=== PATIENT | male | born 1940 | race Caucasian/White ===

== ENCOUNTER 2023-10-01 11:37 | Inpatient (IN) | payer MEDICARE ==
[~2023-10-01] VITALS: Ht 152.4 cm; Wt 63.5 kg
[~2023-10-01 11:37] MED LIST: AMLO5TAB88 PO; ASPI-1406 PO; ATOR-2 PO; BENA40TA91 PO; CLOP-31 MT; COLL30OI TP; HYDR12.54 MT; LEVO112T7 MT; LEVO750T68 PO; METF-416 PO; NITR0.4T49 SL; NPH,100V SQ
[2023-10-01 12:00] VITALS: O2SAT 100
[2023-10-01 12:30] LABS: BASOPHILS % 0.3 % (0.0-2.0); EOSINOPHILS % 0.4 % (0.0-5.0); HEMATOCRIT. 33.6 % (42.0-52.0); HEMOGLOBIN. 11.3 g/dL (14.0-18.0); LYMPHOCYTES % 7.5 % (20.0-50.0); MEAN CORPUSCULAR HEMOGLOBIN 29.5 pg (28.0-32.0); MEAN CORPUSCULAR HGB CONC 33.6 g/dL (31.0-37.0); MEAN CORPUSCULAR VOLUME 87.6 fL (80.0-94.0); MONOCYTES % 6.1 % (2.0-8.0); NEUTROPHILS % 85.7 % (40.0-76.0); PLATELET 370 x1000/uL (130-400); RED BLOOD CELL COUNT 3.83 mill/uL (4.7-6.1); RED CELL DISTRIBUTION WIDTH 13.6 % (11.6-14.6)
[2023-10-01 12:42] LABS: POTASSIUM 5.6 mEq/L (3.5-5.1)
[2023-10-01 13:02] LABS: CREATININE 1.8 mg/dL (0.6-1.3)
[2023-10-01] MEDS: PIPERACILLIN/TAZO 3.375G/50ML 50 ML IV SCH (14:53)
[2023-10-01] MEDS: ACETAMINOPHEN 500MG TABLET PO ONE (15:00)
[2023-10-01] MEDS: ACETAMINOPHEN 500MG TABLET PO SCH (15:02)
[2023-10-01 15:26] LABS: ALANINE AMINOTRANSFERASE 11 IU/L (10-49); ALBUMIN 3.6 g/dL (3.2-4.8); ASPARTATE AMINOTRANSFERASE 27 IU/L (<34); BILIRUBIN DIRECT 0.1 mg/dL (<=3.0); BILIRUBIN TOTAL 0.4 mg/dL (0.1-1.0); PROTEIN TOTAL 6.7 g/dL (6.0-8.3)
[2023-10-01 15:45] LABS: LACTIC ACID 2.1 mmol/L (0.4-2.0)
[2023-10-01] MEDS: CALCIUM CHLORIDE 1GM/10ML SYR IV ONE (16:20)
[2023-10-01] MEDS: SODIUM CHLORIDE 0.9% 1,000 ML IV ONE (16:20)
[2023-10-01] MEDS: DEXTROSE 50% WATER 50ML SYRINGE IV ONE (16:42)
[2023-10-01] MEDS: INSULIN REGULAR (HUMULIN R) 300UNITS/3ML VIAL IV ONE (16:42)
[2023-10-01 16:47] LABS: CHLORIDE 103 mEq/L (98-107); POTASSIUM 4.2 mEq/L (3.5-5.1); SODIUM 133 mEq/L (136-145)
[2023-10-01 16:48] LABS: CARBON DIOXIDE 24 mEq/L (21-32)
[2023-10-01] MEDS: VANCOMYCIN 1G PREMIX 200 ML IV SCH (16:48)
[2023-10-01] MEDS: SODIUM POLYSTYRENE SULFONATE 15 G/60 ML BOT PO ONE (16:48)
[2023-10-01 16:49] LABS: CALCIUM 8.3 mg/dL (8.7-10.4)
[2023-10-01 16:53] LABS: CREATININE 1.6 mg/dL (0.6-1.3); GLUCOSE 147 mg/dL (70-105); UREA NITROGEN BLOOD 31 mg/dL (9-23)
[2023-10-01 16:56] LABS: TROPONIN I HIGH SENSITIVITY 7 ng/L (3.0-53)
[2023-10-01 16:59] LABS: PARTIAL THROMBOPLASTIN TIME 27.6 sec (23.4-31.0); PROTHROMBIN TIME 11.4 sec (9.6-11.0)
[2023-10-01 23:15] VITALS: BP 118/58; PULSE 87; RESP 18; TEMP 97.9
[2023-10-02] MEDS ORDERED: NON FORMULARY PATIENT HOME MED XX SCH ×4 (01:00)
[2023-10-02] MEDS ORDERED: CLONIDINE 0.1MG TABLET PO PRN ×2 (01:00→14:15)
[2023-10-02] MEDS ORDERED: DEXTROSE 50% WATER 50ML SYRINGE IV PRN ×2 (01:00→14:15)
[2023-10-02] MEDS ORDERED: NALOXONE HCL 0.4MG/ML VIAL IV PRN (01:15)
[2023-10-02] MEDS: MORPHINE SULFATE 2 MG/ML CPJ (NOT FOR IM USE) IV PRN (01:20)
[2023-10-02 04:00] VITALS: BP 118/61; PULSE 83; RESP 18; TEMP 100.6; TEMP 97.7
[2023-10-02] MEDS: LEVOTHYROXINE SODIUM 112MCG TABLET PO SCH (07:40)
[2023-10-02] MEDS: INSULIN LISPRO 100 UNITS/ML SUBCUT SCH ×2 (07:59→18:10)
[2023-10-02] MEDS: BLOOD SUGAR DIAGNOSTIC STRIP TEST SCH ×2 (07:59→17:40)
[2023-10-02 08:00] VITALS: BP 128/86; PULSE 78; RESP 18; TEMP 97.6
[2023-10-02] MEDS ORDERED: NPH,100V SUBCUT (09:02)
[2023-10-02] MEDS ORDERED: NITR1PAT65 TD (09:02)
[2023-10-02] MEDS ORDERED: KETO15CR2 TP (09:08)
[2023-10-02] MEDS: ENOXAPARIN 30MG/0.3ML SYR SUBCUT SCH (09:24)
[2023-10-02] MEDS: AMLODIPINE 5MG TABLET PO SCH (09:24)
[2023-10-02] MEDS: HYDROCHLOROTHIAZIDE 12.5MG CAPSULE PO SCH (09:25)
[2023-10-02] MEDS: LISINOPRIL 40MG TABLET PO SCH (09:25)
[2023-10-02] MEDS: CLOPIDOGREL 75MG TABLET PO SCH (09:25)
[2023-10-02] MEDS: ASPIRIN 81MG EC TABLET PO SCH (09:26)
[2023-10-02 12:00] VITALS: BP 118/79; PULSE 86; RESP 22; TEMP 98
[2023-10-02] MEDS ORDERED: DOCUSATE SODIUM 100MG CAPSULE PO PRN (14:15)
[2023-10-02] MEDS ORDERED: ACETAMINOPHEN 325MG TABLET PO PRN (14:15)
[2023-10-02] MEDS ORDERED: IPRATROPIUM/ALBUTEROL 0.5-3(2.5)MG/3ML NEB HHN PRN (14:15)
[2023-10-02 16:00] VITALS: BP 106/53; PULSE 78; RESP 18; TEMP 98.6
[2023-10-02 16:33] LABS: BASOPHILS % 0.2 % (0.0-2.0); EOSINOPHILS % 0.7 % (0.0-5.0); HEMATOCRIT. 29.5 % (42.0-52.0); HEMOGLOBIN. 9.9 g/dL (14.0-18.0); LYMPHOCYTES % 10.2 % (20.0-50.0); MEAN CORPUSCULAR HEMOGLOBIN 29.1 pg (28.0-32.0); MEAN CORPUSCULAR HGB CONC 33.4 g/dL (31.0-37.0); MEAN CORPUSCULAR VOLUME 87.3 fL (80.0-94.0); MEAN PLATELET VOLUME 7.2 fl (7.4-10.4); NEUTROPHILS % 82.9 % (40.0-76.0); PLATELET 291 x1000/uL (130-400); RED BLOOD CELL COUNT 3.38 mill/uL (4.7-6.1); RED CELL DISTRIBUTION WIDTH 13.5 % (11.6-14.6); WHITE BLOOD COUNT 9.3 x1000/uL (4.5-11.0)
[2023-10-02 16:47] LABS: CHLORIDE 101 mEq/L (98-107); POTASSIUM 3.3 mEq/L (3.5-5.1); SODIUM 134 mEq/L (136-145)
[2023-10-02 16:48] LABS: CARBON DIOXIDE 24 mEq/L (21-32)
[2023-10-02] MEDS: CEFTRIAXONE 1GM/50ML 50 ML IV SCH (16:52)
[2023-10-02 16:53] LABS: GLUCOSE 229 mg/dL (70-105); UREA NITROGEN BLOOD 20 mg/dL (9-23)
[2023-10-02 16:55] LABS: ALANINE AMINOTRANSFERASE 7 IU/L (10-49); ALBUMIN 2.9 g/dL (3.2-4.8); ASPARTATE AMINOTRANSFERASE 21 IU/L (<34); BILIRUBIN TOTAL 0.3 mg/dL (0.1-1.0); PROTEIN TOTAL 5.4 g/dL (6.0-8.3)
[2023-10-02 16:56] LABS: BILIRUBIN DIRECT < 0.1 mg/dL (<=3.0)
[2023-10-02] MEDS: SODIUM CHLORIDE 0.45% 1,000 ML IV SCH (16:56)
[2023-10-02] MEDS: METFORMIN HCL 500MG TABLET PO SCH (18:58)
[2023-10-02 20:00] VITALS: BP 95/43; PULSE 80; RESP 18; TEMP 97.2
[2023-10-02] MEDS: ATORVASTATIN CALCIUM 40MG TABLET PO SCH (21:04)
[2023-10-03] VITALS: BP 121/59; PULSE 77; RESP 19; TEMP 97.1
[2023-10-03 04:00] VITALS: BP 105/54; PULSE 84; RESP 20; TEMP 97.5
[2023-10-03 08:00] VITALS: BP 134/56; PULSE 81; RESP 18; TEMP 97.8
[2023-10-03 08:33] LABS: CARBON DIOXIDE 24 mEq/L (21-32); CHLORIDE 102 mEq/L (98-107); POTASSIUM 3.1 mEq/L (3.5-5.1); SODIUM 136 mEq/L (136-145)
[2023-10-03 08:35] LABS: CALCIUM 7.9 mg/dL (8.7-10.4)
[2023-10-03 08:38] LABS: CREATININE 0.8 mg/dL (0.6-1.3)
[2023-10-03 08:39] LABS: GLUCOSE 96 mg/dL (70-105); UREA NITROGEN BLOOD 14 mg/dL (9-23)
[2023-10-03] MEDS ORDERED: LIDOCAINE HCL 1% 10 MG/ML 10ML VIAL ONE ×2 (09:24→12:05)
[2023-10-03] MEDS ORDERED: GENTAMICIN SULF 40MG/ML 2ML VIAL ONE (09:24)
[2023-10-03] MEDS ORDERED: POLYMYXIN B SULFATE 500000 UNITS/VIAL ONE (09:24)
[2023-10-03] MEDS ORDERED: BACITRACIN 14GM TUBE TOP ONE (09:24)
[2023-10-03] MEDS ORDERED: BUPIVACAINE HCL/PF 0.5% (5MG/ML) 10ML ONE ×2 (09:24→12:05)
[2023-10-03] MEDS ORDERED: VANCOMYCIN HCL 1 GM/VIAL ONE (09:50)
[2023-10-03] MEDS: POTASSIUM CHLORIDE 20MEQ TABLET SR PO NR (10:17)
[2023-10-03] MEDS: PANTOPRAZOLE SODIUM 40 MG/VIAL IV SCH (10:18)
[2023-10-03] MEDS: VANCOMYCIN 750MG PREMIX 150 ML IV SCH (10:19)
[2023-10-03 12:00] VITALS: BP 128/54; PULSE 79; RESP 18; TEMP 97.2
[2023-10-03] MEDS ORDERED: PROPOFOL 200MG/20ML VIAL IV ONE (12:14)
[2023-10-03] MEDS ORDERED: SUCCINYLCHOLINE CHLORIDE 200MG/10ML IV ONE (12:19)
[2023-10-03] MEDS ORDERED: ONDANSETRON HCL 4MG/2ML INJ ONE (12:19)
[2023-10-03] MEDS ORDERED: DEXAMETHASONE 4MG/ML 1ML VIAL ONE (12:19)
[2023-10-03] MEDS ORDERED: MIDAZOLAM HCL 2 MG/2 ML VIAL ONE (12:34)
[2023-10-03] MEDS ORDERED: ROCURONIUM BROMIDE 10MG/ML VIAL 5ML IV ONE (12:36)
[2023-10-03] MEDS ORDERED: CEFAZOLIN SODIUM 1000MG/VIAL ONE (12:38)
[2023-10-03] MEDS ORDERED: FENTANYL CITRATE/PF 50MCG/ML 2ML VIAL IV PRN (13:00)
[2023-10-03] MEDS ORDERED: MEPERIDINE HCL/PF 25MG/ML CPJ IV PRN (13:00)
[2023-10-03] MEDS ORDERED: HYDROMORPHONE HCL/PF 2MG/ML CPJ IV PRN (13:00)
[2023-10-03] MEDS ORDERED: ONDANSETRON HCL 4MG/2ML INJ IV PRN (13:00)
[2023-10-03] MEDS ORDERED: FENTANYL CITRATE/PF 50MCG/ML 2ML VIAL ONE (13:37)
[2023-10-03] MEDS ORDERED: PHENYLEPHRINE HCL 10 MG/ML 1ML (IV VIAL) IV ONE (13:37)
[2023-10-03 13:47] LABS: FERRITIN 81 ng/mL (22-322)
[2023-10-03 13:49] LABS: FOLIC ACID (FOLATE) SERUM 12.35 ng/mL (>5.38)
[2023-10-03 13:51] LABS: VITAMIN B12 SERUM 299 pg/mL (211-911)
[2023-10-03 16:00] VITALS: BP 116/62; PULSE 83; RESP 18; TEMP 97.9
[2023-10-03] MEDS: PIPERACILLIN/TAZO 3.375G/50ML IV SCH (16:22)
[2023-10-03 16:52] LABS: IRON 21 ug/dL (65-175)
[2023-10-03 16:54] LABS: TOTAL IRON BINDING CAPACITY 196 ug/dl (250-425)
[2023-10-03 20:00] VITALS: BP 101/46; PULSE 97; RESP 19; TEMP 97.9
[2023-10-03] MEDS ORDERED: IOHEXOL-350 100 ML BOTTLE ONE (21:05)
[2023-10-03 21:16] LABS: HEMOGLOBIN. 10.4 g/dL (14.0-18.0); MEAN CORPUSCULAR HEMOGLOBIN 29.4 pg (28.0-32.0); MEAN CORPUSCULAR HGB CONC 33.6 g/dL (31.0-37.0); MEAN CORPUSCULAR VOLUME 87.7 fL (80.0-94.0); PLATELET 295 x1000/uL (130-400); RED BLOOD CELL COUNT 3.53 mill/uL (4.7-6.1); RED CELL DISTRIBUTION WIDTH 13.6 % (11.6-14.6); WHITE BLOOD COUNT 13.5 x1000/uL (4.5-11.0)
[2023-10-03 21:22] LABS: DIFFERENTIAL COMMENT 1
[2023-10-03] MEDS: HYDROCODONE/ACETAMINOPHEN 5/325MG TABLET PO PRN (21:40)
[2023-10-03 22:06] LABS: PLATELET ESTIMATE NORMAL
[2023-10-04] VITALS: BP 98/50; PULSE 88; RESP 19; TEMP 97.7
[2023-10-04 04:00] VITALS: BP 102/54; PULSE 80; RESP 19; TEMP 97.5
[2023-10-04 06:01] LABS: HEMATOCRIT. 32.5 % (42.0-52.0); HEMOGLOBIN. 11.1 g/dL (14.0-18.0); MEAN CORPUSCULAR HEMOGLOBIN 29.1 pg (28.0-32.0); MEAN CORPUSCULAR HGB CONC 34.1 g/dL (31.0-37.0); MEAN CORPUSCULAR VOLUME 85.5 fL (80.0-94.0); MEAN PLATELET VOLUME 7.1 fl (7.4-10.4); PLATELET 353 x1000/uL (130-400); RED CELL DISTRIBUTION WIDTH 13.6 % (11.6-14.6); WHITE BLOOD COUNT 16.2 x1000/uL (4.5-11.0)
[2023-10-04 06:11] LABS: CALCIUM 7.7 mg/dL (8.7-10.4)
[2023-10-04 06:17] LABS: DIFFERENTIAL COMMENT 1
[2023-10-04 06:22] LABS: CREATININE 1.4 mg/dL (0.6-1.3); POTASSIUM 5.3 mEq/L (3.5-5.1)
[2023-10-04] MEDS ORDERED: HEPARIN 1000 UNITS/ML 10ML ONE (07:34)
[2023-10-04] MEDS ORDERED: LIDOCAINE HCL 1% 20ML VIAL (Pyxis) INJ ONE (07:34)
[2023-10-04] MEDS ORDERED: IODIXANOL 320MG/ML 100 ML BOTTLE IV ONE ×2 (07:34→07:35)
[2023-10-04] MEDS ORDERED: ONDANSETRON HCL 4MG/2ML INJ ONE (08:07)
[2023-10-04] MEDS ORDERED: MIDAZOLAM HCL 2 MG/2 ML VIAL ONE (08:07)
[2023-10-04] MEDS ORDERED: FENTANYL CITRATE/PF 50MCG/ML 2ML VIAL ONE (08:07)
[2023-10-04 09:00] VITALS: BP 95/46; PULSE 98; RESP 18; TEMP 98.2
[2023-10-04] MEDS: ONDANSETRON HCL 4MG/2ML INJ IV PRN (09:50)
[2023-10-04] MEDS: SODIUM CHLORIDE 0.9% 500 ML IV ONE ×2 (10:22→19:22)
[2023-10-04 12:00] VITALS: BP 100/57; PULSE 97; RESP 18; TEMP 97.5
[2023-10-04 16:00] VITALS: BP 108/48; PULSE 97; RESP 18; TEMP 97.9
[2023-10-04] MEDS: ACETAMINOPHEN 325MG TABLET PO PRN (16:19)
[2023-10-04 20:00] VITALS: BP 111/54; PULSE 95; RESP 20; TEMP 98.3
[2023-10-04 21:15] LABS: HEMATOCRIT 32.1 % (42.0-52.0); HEMOGLOBIN 10.5 g/dL (14.0-18.0); MEAN CORPUSCULAR HEMOGLOBIN 28.8 pg (28.0-32.0); MEAN CORPUSCULAR HGB CONC 32.8 g/dL (31.0-37.0); PLATELET 348 x1000/uL (130-400); RED BLOOD CELL COUNT 3.65 mill/uL (4.7-6.1); RED CELL DISTRIBUTION WIDTH 13.7 % (11.6-14.6)
[2023-10-04 22:25] LABS: PLATELET ESTIMATE NORMAL
[2023-10-04 22:26] LABS: OVALOCYTES 1+; TEAR DROP CELLS 1+
[2023-10-05] VITALS (9 sets, daily range): BP systolic 82–117; BP diastolic 32–81; PULSE 87–94; RESP 18–20; TEMP 97.9–98.6
[2023-10-05] MEDS: SODIUM CHLORIDE 0.9% 1,000 ML IV NR (00:55)
[2023-10-05 06:05] LABS: POTASSIUM 3.4 mEq/L (3.5-5.1)
[2023-10-05 06:06] LABS: CALCIUM 6.3 mg/dL (8.7-10.4)
[2023-10-05 06:12] LABS: CREATININE 2.1 mg/dL (0.6-1.3)
[2023-10-05] MEDS: FAMOTIDINE 20MG/2ML VIAL IV SCH (08:56)
[2023-10-05] MEDS: SODIUM CHLORIDE 0.9% 250 ML IV ONE ×2 (14:48→16:19)
[2023-10-05] MEDS: SODIUM CHLORIDE 0.9% 1,000 ML IV SCH (14:53)
[2023-10-05] MEDS: KCL 20MEQ/100ML PREMIX 100 ML IV NR (15:40)
[2023-10-05 16:59] LABS: HEMATOCRIT. 36.4 % (42.0-52.0); HEMOGLOBIN. 11.8 g/dL (14.0-18.0); MEAN CORPUSCULAR HEMOGLOBIN 29.2 pg (28.0-32.0); MEAN CORPUSCULAR HGB CONC 32.5 g/dL (31.0-37.0); MEAN CORPUSCULAR VOLUME 89.8 fL (80.0-94.0); MEAN PLATELET VOLUME 7.5 fl (7.4-10.4); PLATELET 393 x1000/uL (130-400); RED BLOOD CELL COUNT 4.05 mill/uL (4.7-6.1); RED CELL DISTRIBUTION WIDTH 14.2 % (11.6-14.6); WHITE BLOOD COUNT 25.5 x1000/uL (4.5-11.0)
[2023-10-05 17:02] LABS: DIFFERENTIAL COMMENT 1
[2023-10-05] MEDS: VANCOMYCIN 250MG/5ML ORAL SYRINGE PO SCH (17:15)
[2023-10-05 17:34] LABS: PLATELET ESTIMATE NORMAL
[2023-10-05] MEDS: MAGNESIUM 2 G PREMIX 50 ML IV NR (21:14)
[2023-10-05] MEDS: LACTATED RINGERS 1,000 ML IV ONE (22:13)
[2023-10-06] VITALS (53 sets, daily range): BP systolic 38–146; BP diastolic 13–81; PULSE 66–160; RESP 8–32; TEMP 94.3–98
[2023-10-06 06:44] LABS: CALCIUM 6.9 mg/dL (8.7-10.4); CHLORIDE 100 mEq/L (98-107); POTASSIUM 4.3 mEq/L (3.5-5.1); SODIUM 127 mEq/L (136-145)
[2023-10-06 06:50] LABS: GLUCOSE 158 mg/dL (70-105); UREA NITROGEN BLOOD 26 mg/dL (9-23)
[2023-10-06 07:46] LABS: CREATININE 3.4 mg/dL (0.6-1.3)
[2023-10-06 11:18] LABS: BG BASE EXCESS -18.3 mmol/L (-2.0-2.0); BG CARBOXYHEMOGLOBIN 0.3 % (0.5-1.5); BG DEOXYHEMOGLOBIN 2.2 % (0.0-5.0); BG FRACTION INSPIRED OXYGEN 28; BG HCO3 ACT 7.8 mmol/L (22.0-26.0); BG METHEMOGLOBIN 0.4 % (0.0-1.5); BG OXYGEN SATURATION 97.8 % (92.0-98.5); BG OXYHEMOGLOBIN 97.1 % (94.0-97.0); BG PCO2 20.6 mmHg (35.0-45.0); BG PH 7.196 (7.350-7.450); BG PO2 111.8 mmHg (75.0-100.0); BG SAMPLE SITE RIGHT RADIAL; BG TOTAL HEMOGLOBIN 13.3 g/dL (12.0-18.0); BG VENT MODE NASAL CANNULA
[2023-10-06] MEDS: SODIUM BICARBONATE 8.4% 1 MEQ/ML 50ML SYR IV NR ×3 (11:38→20:52)
[2023-10-06 11:55] LABS: HEMATOCRIT. 38.7 % (42.0-52.0); HEMOGLOBIN. 12.6 g/dL (14.0-18.0); MEAN CORPUSCULAR HEMOGLOBIN 29.3 pg (28.0-32.0); MEAN CORPUSCULAR HGB CONC 32.5 g/dL (31.0-37.0); MEAN CORPUSCULAR VOLUME 90.2 fL (80.0-94.0); MEAN PLATELET VOLUME 7.6 fl (7.4-10.4); PLATELET 398 x1000/uL (130-400); RED BLOOD CELL COUNT 4.29 mill/uL (4.7-6.1); RED CELL DISTRIBUTION WIDTH 14.4 % (11.6-14.6); WHITE BLOOD COUNT 35.5 x1000/uL (4.5-11.0)
[2023-10-06 11:57] LABS: DIFFERENTIAL COMMENT 1
[2023-10-06] MEDS: SODIUM BICARBONATE 150 MEQ in DEXTROSE 5% WATER 850 ML IV SCH (13:07)
[2023-10-06] MEDS: SODIUM CHLORIDE 0.9% 500 ML IV ONE (13:12)
[2023-10-06 14:25] LABS: PLATELET ESTIMATE NORMAL
[2023-10-06 15:07] LABS: BG BASE EXCESS -18.9 mmol/L (-2.0-2.0); BG CARBOXYHEMOGLOBIN 0.3 % (0.5-1.5); BG DEOXYHEMOGLOBIN 4.2 % (0.0-5.0); BG HCO3 ACT 7.9 mmol/L (22.0-26.0); BG METHEMOGLOBIN 0.5 % (0.0-1.5); BG OXYGEN SATURATION 95.8 % (92.0-98.5); BG PCO2 22.3 mmHg (35.0-45.0); BG PH 7.166 (7.350-7.450); BG PO2 94.5 mmHg (75.0-100.0); BG SAMPLE SITE RIGHT BRACHIAL; BG TOTAL HEMOGLOBIN 12.8 g/dL (12.0-18.0); BG VENT MODE NASAL CANNULA
[2023-10-06] MEDS ORDERED: SODIUM BICARBONATE 8.4% 1 MEQ/ML 50ML SYR IV NR (15:15)
[2023-10-06] MEDS ORDERED: PROPOFOL 10MG/ML 100ML 100 ML IV PRN (15:45)
[2023-10-06] MEDS ORDERED: FENTANYL CITRATE/PF 50MCG/ML 2ML VIAL IV PRN ×2 (15:45→16:00)
[2023-10-06] MEDS: SODIUM CHLORIDE 0.9% 250 ML IV ONE (16:00)
[2023-10-06 16:12] LABS: CARBON DIOXIDE < 10 mEq/L (21-32)
[2023-10-06 17:24] LABS: BG CARBOXYHEMOGLOBIN 0.2 % (0.5-1.5); BG DEOXYHEMOGLOBIN 3.3 % (0.0-5.0); BG FRACTION INSPIRED OXYGEN 60; BG HCO3 ACT 9.8 mmol/L (22.0-26.0); BG METHEMOGLOBIN 0.4 % (0.0-1.5); BG OXYGEN SATURATION 96.7 % (92.0-98.5); BG OXYHEMOGLOBIN 96.1 % (94.0-97.0); BG PCO2 37.4 mmHg (35.0-45.0); BG PH 7.038 (7.350-7.450); BG PO2 114.6 mmHg (75.0-100.0); BG SAMPLE SITE ALINE; BG VENT MODE VENT - AC
[2023-10-06] MEDS: CALCIUM GLUCONATE 1GM PREMIX 50 ML IV NR ×2 (17:40→20:00)
[2023-10-06 18:05] LABS: CHLORIDE 98 mEq/L (98-107); POTASSIUM 3.7 mEq/L (3.5-5.1); SODIUM 131 mEq/L (136-145)
[2023-10-06 18:06] LABS: CALCIUM 6.4 mg/dL (8.7-10.4); CARBON DIOXIDE 11 mEq/L (21-32)
[2023-10-06 18:11] LABS: CREATININE 3.8 mg/dL (0.6-1.3); GLUCOSE 285 mg/dL (70-105); UREA NITROGEN BLOOD 40 mg/dL (9-23)
[2023-10-06] MEDS: MEROPENEM 500MG/50ML 50 ML IV SCH (18:43)
[2023-10-06] MEDS ORDERED: DEXT 5% IV ONE (19:00)
[2023-10-06] MEDS: SODIUM BICARBONATE 8.4% 1 MEQ/ML 50ML SYR IV SCH (19:00)
[2023-10-06] MEDS ORDERED: AMIODARONE HCL IV ONE (19:00)
[2023-10-06] MEDS ORDERED: WATER IV ONE (19:00)
[2023-10-06 19:28] LABS: BG BASE EXCESS -12.6 mmol/L (-2.0-2.0); BG CARBOXYHEMOGLOBIN 0.3 % (0.5-1.5); BG DEOXYHEMOGLOBIN 3.8 % (0.0-5.0); BG FRACTION INSPIRED OXYGEN 60; BG HCO3 ACT 12.8 mmol/L (22.0-26.0); BG METHEMOGLOBIN 0.3 % (0.0-1.5); BG OXYGEN SATURATION 96.2 % (92.0-98.5); BG OXYHEMOGLOBIN 95.6 % (94.0-97.0); BG PCO2 28.4 mmHg (35.0-45.0); BG PH 7.272 (7.350-7.450); BG PO2 89.4 mmHg (75.0-100.0); BG SAMPLE SITE ALINE; BG VENT MODE VENT - AC
[2023-10-06] MEDS: PHENYLEPHRINE 100 MG in DEXT 5% WATER 240 ML IV PRN (19:42)
[2023-10-06] MEDS: AMIODARONE 150MG/100ML 100 ML IV NR (19:42)
[2023-10-06] MEDS: AMIODARONE HCL 900 MG in DEXT 5% WATER 482 ML IV PRN (20:06)
[2023-10-06] MEDS: MAGNESIUM 2 G PREMIX 50 ML IV NR (20:53)
[2023-10-06] MEDS: NOREPINEPHRINE 8MG/250ML PMX 250 ML IV PRN (21:03)
[2023-10-06] MEDS: SODIUM CHLORIDE 0.9% 500 ML IV NR (21:04)
[2023-10-06] MEDS: VASOPRESSIN 20 UNIT in SODIUM CHLORIDE 0.9% 99 ML IV PRN (21:18)
[2023-10-06] MEDS: ALBUMIN HUMAN 25GM/500ML (5%) IV NR (21:27)
[2023-10-06] MEDS: PIPERACILLIN/TAZO 3.375G/50ML IV SCH (21:54)
[2023-10-06 22:21] LABS: BG BASE EXCESS -15.6 mmol/L (-2.0-2.0); BG CARBOXYHEMOGLOBIN 0.3 % (0.5-1.5); BG DEOXYHEMOGLOBIN 13.9 % (0.0-5.0); BG FRACTION INSPIRED OXYGEN 60; BG METHEMOGLOBIN 0.2 % (0.0-1.5); BG OXYHEMOGLOBIN 85.6 % (94.0-97.0); BG PCO2 34.4 mmHg (35.0-45.0); BG PO2 59.5 mmHg (75.0-100.0); BG SAMPLE SITE ALINE; BG TOTAL HEMOGLOBIN 13.1 g/dL (12.0-18.0); BG VENT MODE VENT - AC
[2023-10-06 22:32] LABS: CHLORIDE 98 mEq/L (98-107); POTASSIUM 3.4 mEq/L (3.5-5.1); SODIUM 138 mEq/L (136-145)
[2023-10-06 22:33] LABS: CARBON DIOXIDE 13 mEq/L (21-32)
[2023-10-06 22:38] LABS: CREATININE 3.6 mg/dL (0.6-1.3); GLUCOSE 293 mg/dL (70-105); INR 1.1; PARTIAL THROMBOPLASTIN TIME 65.2 sec (23.4-31.0); PROTHROMBIN TIME 12.5 sec (9.6-11.0); UREA NITROGEN BLOOD 41 mg/dL (9-23)
[2023-10-06 22:40] LABS: ALANINE AMINOTRANSFERASE 38 IU/L (10-49); ALBUMIN 1.8 g/dL (3.2-4.8); ASPARTATE AMINOTRANSFERASE 92 IU/L (<34); BILIRUBIN TOTAL 0.2 mg/dL (0.1-1.0); PROTEIN TOTAL 3.5 g/dL (6.0-8.3)
[2023-10-06 22:44] LABS: CALCIUM 5.8 mg/dL (8.7-10.4)
[2023-10-06] MEDS: NOREPINEPHRINE 32 MG in DEXT 5% WATER 218 ML IV PRN (23:24)
[2023-10-06] MEDS: CALCIUM GLUCONATE 100MG/ML 10ML VIAL IV NR (23:52)
[2023-10-07] VITALS (53 sets, daily range): BP systolic 34–88; BP diastolic 15–55; PULSE 75–100; RESP 15–36; TEMP 96.1–98.5
[2023-10-07 05:02] LABS: BG BASE EXCESS -19.3 mmol/L (-2.0-2.0); BG CARBOXYHEMOGLOBIN 0.3 % (0.5-1.5); BG DEOXYHEMOGLOBIN 10.3 % (0.0-5.0); BG FRACTION INSPIRED OXYGEN 100; BG HCO3 ACT 8.6 mmol/L (22.0-26.0); BG METHEMOGLOBIN 0.5 % (0.0-1.5); BG OXYGEN SATURATION 89.6 % (92.0-98.5); BG OXYHEMOGLOBIN 88.9 % (94.0-97.0); BG PCO2 27.4 mmHg (35.0-45.0); BG PH 7.117 (7.350-7.450); BG PO2 70.1 mmHg (75.0-100.0); BG SAMPLE SITE ALINE; BG TOTAL HEMOGLOBIN 11.7 g/dL (12.0-18.0); BG VENT MODE VENT - AC
[2023-10-07 05:19] LABS: HEMATOCRIT. 33.1 % (42.0-52.0); HEMOGLOBIN. 10.8 g/dL (14.0-18.0); MEAN CORPUSCULAR HEMOGLOBIN 29.6 pg (28.0-32.0); MEAN CORPUSCULAR HGB CONC 32.7 g/dL (31.0-37.0); MEAN CORPUSCULAR VOLUME 90.5 fL (80.0-94.0); MEAN PLATELET VOLUME 7.8 fl (7.4-10.4); PLATELET 268 x1000/uL (130-400); RED BLOOD CELL COUNT 3.66 mill/uL (4.7-6.1); RED CELL DISTRIBUTION WIDTH 14.4 % (11.6-14.6)
[2023-10-07 05:24] LABS: CALCIUM 6.2 mg/dL (8.7-10.4)
[2023-10-07 06:15] LABS: DIFFERENTIAL COMMENT 1
[2023-10-07 08:16] LABS: BG BASE EXCESS -18.4 mmol/L (-2.0-2.0); BG CARBOXYHEMOGLOBIN 0.2 % (0.5-1.5); BG DEOXYHEMOGLOBIN 11.7 % (0.0-5.0); BG FRACTION INSPIRED OXYGEN 100; BG METHEMOGLOBIN 0.5 % (0.0-1.5); BG OXYGEN SATURATION 88.2 % (92.0-98.5); BG OXYHEMOGLOBIN 87.6 % (94.0-97.0); BG PCO2 32.8 mmHg (35.0-45.0); BG PH 7.102 (7.350-7.450); BG SAMPLE SITE ALINE; BG TOTAL HEMOGLOBIN 10.9 g/dL (12.0-18.0); BG VENT MODE VENT - AC
[2023-10-07] MEDS: DOPAMINE 800MG PREMIX (DOUBLE) 250 ML IV PRN (09:08)
[2023-10-07 17:54] LABS: PLATELET ESTIMATE NORMAL
[2023-10-07] MEDS ORDERED: VANCOMYCIN 750MG PREMIX 150 ML IV SCH (21:00)
== END 2023-10-07 11:31 | DRG 255 ==
LOC: ER 11:37 → 5WST 15:40 → EDBEDREQ 15:42 → EDBEDREQTM 15:42 → 7WST 23:21 → CVICU 10-06 14:47
PROVIDERS: ADMIT Internal Medicine; ATTEND Internal Medicine
PROC: 0Y6Q0Z0 Detachment at Left 1st Toe, Complete, Open Approach (ICD-10-PCS; 2023-10-03)
PROC: 5A1935Z Respiratory Ventilation, Less than 24 Consecutive Hours (ICD-10-PCS; principal; 2023-10-06)
PROC: 0BH17EZ Insertion of Endotracheal Airway into Trachea, Via Natural or Artificial Opening (ICD-10-PCS; 2023-10-06)
PROC: 03HY32Z Insertion of Monitoring Device into Upper Artery, Percutaneous Approach (ICD-10-PCS; 2023-10-07)
PROC: 06HY33Z Insertion of Infusion Device into Lower Vein, Percutaneous Approach (ICD-10-PCS; 2023-10-07)
PROC: 4A133B1 Monitoring of Arterial Pressure, Peripheral, Percutaneous Approach (ICD-10-PCS; 2023-10-07)
DX: E11.52 Type 2 diabetes mellitus with diabetic peripheral angiopathy with gangrene (principal); A41.9 Sepsis, unspecified organism; R65.21 Severe sepsis with septic shock; J96.00 Acute respiratory failure, unspecified whether with hypoxia or hypercapnia; E87.1 Hypo-osmolality and hyponatremia; I96 Gangrene, not elsewhere classified; N17.9 Acute kidney failure, unspecified; E83.51 Hypocalcemia; Z66 Do not resuscitate; L97.529 Non-pressure chronic ulcer of other part of left foot with unspecified severity; E11.621 Type 2 diabetes mellitus with foot ulcer; D64.9 Anemia, unspecified; E11.40 Type 2 diabetes mellitus with diabetic neuropathy, unspecified; E78.00 Pure hypercholesterolemia, unspecified; E03.9 Hypothyroidism, unspecified; I10 Essential (primary) hypertension; E87.5 Hyperkalemia; E86.0 Dehydration; Z89.412 Acquired absence of left great toe; Z98.62 Peripheral vascular angioplasty status; Z79.899 Other long term (current) drug therapy; Z79.84 Long term (current) use of oral hypoglycemic drugs; Z79.82 Long term (current) use of aspirin; Z79.4 Long term (current) use of insulin; Z79.02 Long term (current) use of antithrombotics/antiplatelets
CPT/HCPCS: 31500; 36415; 36600; 71045; 73630; 74018; 75635; 80048; 80053; 80076; 80202; 82270; 82330; 82375; 82607; 82728; 82746; 82805; 82962; 83036; 83540; 83550; 83605; 83735; 84145; 84478; 84484; 85025; 85027; 87070; 87075; 87077; 87186; 87426; 87493; 88304; 88311; 89055; 93005; 93306; 93923; 93970; 94002; 94003; 99285; C9113; J0282; J0330; J0610; J0690; J0696; J1100; J1265; J1580; J1644; J1650; J1815; J2185; J2250; J2270; J2370; J2405; J2543; J2704; J3010; J3370; J3475; J3480; J3490; J7030; J7050; J7060; J7070; P9041; Q9967